=== PATIENT | male | born 1950 | race Caucasian/White ===

== ENCOUNTER 2022-09-18 02:06 | Inpatient (IN) | payer MEDICARE, BC, SELFPAY ==
[2022-09-18] VITALS (52 sets, daily range): BP systolic 74–131; BP diastolic 45–103; PULSE 59–95; RESP 18–27; TEMP 37.3–38.6; O2SAT 91–100
--- NOTE | 2022-09-18 | ECHO_ITS ---
Patient Info Name: Davie Muse Age: 72 years : 1950 Gender: Male Ht: 65 in Wt: 250 lbs BSA: 2.34 m2 HR: 62 bpm BP: 164 / 61 mmHg Heart Rhythm: Sinus Rhythm Technical Quality: Fair Exam Date: 09/18/2022 8:48 AM Exam Location: [facility] Card Pulmonary Patient Status: Inpatient Admit Date: 09/18/2022 Staff Ordering Physician: Salina Cano MD Monument Carver: Nevaeh Rodriguez RDCS Attending Provider: Salina Cano MD Referring Physician: Jerome SMITH; Exam Type: CA echo dop color flow w con Study Info Indications - sob Complete two-dimensional, color flow and Doppler transthoracic echocardiogram is performed with contrast to opacify the left ventricle and to improve the deliniation of the left ventricle endocardial borders. Contrast/Agitated Saline Contrast/Ag. Saline: Definity Amount: 3.00 ml Administered By: Nevaeh Rodriguez RDCS Existing IV Access: Yes IV Access Condition: patent with no signs of infiltration Summary 1. Left ventricular chamber dimension is normal. 2. Definity contrast administered improved wall motion interpretation. 3. Left ventricular systolic function is normal, estimated at 60-65%. 4. Left ventricular septal wall motion is abnormal with septal motion related to bundle branch block. 5. The left ventricular diastolic function is grade II diastolic dysfunction. 6. E/e' 15 is elevated. 7. Linear artifact in right ventricle suggestive of catheter(s), pacemaker lead(s), or ICD lead(s). 8. Left atrial chamber dimension is mildly enlarged. 9. Right atrial chamber dimension is mildly enlarged. 10. Linear artifact in the right atrium suggestive of catheter(s), pacemaker lead(s), or ICD lead(s). 11. The aortic valve is not well visualized. Cannot determine number of aortic valve leaflets. 12. There is severe aortic valve stenosis based on a peak velocity of 432.59 cm/s, mean gradient of 40 mmHg, and aortic valve area of 0.83 cm2. 13. No pulmonary hypertension, estimated pulmonary arterial systolic pressure is 39 mmHg. 14. Dilated inferior vena cava with >50% collapse upon inspiration consistent with elevated right atrial pressure, 10 mmHg. Left Ventricle E/e' 15 is elevated. Definity contrast administered improved wall motion interpretation. Left ventricular chamber dimension is normal. Left ventricular systolic function is normal, estimated at 60-65%. Left ventricular septal wall motion is abnormal with septal motion related to bundle branch block. The left ventricular diastolic function is grade II diastolic dysfunction. Right Ventricle Linear artifact in right ventricle suggestive of catheter(s), pacemaker lead(s), or ICD lead(s). Right ventricular chamber dimension is normal. Right ventricular systolic function is normal. Left Atria Left atrial chamber dimension is mildly enlarged. Right Atria Linear artifact in the right atrium suggestive of catheter(s), pacemaker lead(s), or ICD lead(s). Right atrial chamber dimension is mildly enlarged. Aortic Valve The aortic valve is not well visualized. Cannot determine number of aortic valve leaflets. There is severe aortic valve stenosis based on a peak velocity of 432.59 cm/s, mean gradient of 40 mmHg, and aortic valve area of 0.83 cm2. There is no aortic valve regurgitation. Pulmonic Valve There is no pulmonic regurgitation. Mitral Valve There is no mitral valve stenosis. There is no mitral valve regurgitation. Tricuspid
--- NOTE | ~2022-09-18 | XR_ITS ---
EXAMINATION: XR chest 1V portable INDICATION: Pneumonia TECHNIQUE: Portable AP chest at 0511 hours COMPARISON: 09/18/2022 FINDINGS: A right internal jugular catheter ends with its tip in the superior vena cava. Cardiomegaly is noted. There is a mild diffuse interstitial pattern. There are minimal airspace opacities of the right lung base. No pleural effusion or pneumothorax. There are changes of endoluminal aortic valve r eplacement. A dual-lead cardiac pacemaker of the left chest wall ends with leads in expected location s. IMPRESSION: 1. Cardiomegaly with mild pulmonary edema. 2. Minimal right basilar airspace opacity, consistent with atelectasis versus pneumonia. Reviewed, dictated and finalized at location A. IMPRESSION: 1. Cardiomegaly with mild pulmonary edema. 2. Minimal right basilar airspace opacity, consistent with atelectasis versus p neumonia.
--- NOTE | ~2022-09-18 | XR_ITS ---
Portable chest x-ray Comparison: 09/20/2022 Clinical History: Pneumonia Findings: Distal tip of the presumed right IJ line noted. There is probable mild central congestive change and minimal pulmonary edema. Cardiomediastinal silhouette is stable, with pacemaker device. B ones and soft tissues are unremarkable. Impression: Stable distal tip of the presumed right IJ line. Mild central congestive change and mild pulmonary edema. Stable cardiomegaly with pacemaker device. Reviewed, dictated and finalized at location . Impression: Stable distal tip of the presumed right IJ line. Mild central congestive change and mild pulmonary edema. Stable cardiomegaly with pacemaker device.
--- NOTE | ~2022-09-18 | XR_ITS ---
Portable chest x-ray Comparison: None Clinical History: Shortness of breath, line placed Findings: Right IJ line is in satisfactory position. Probable minimal central congestive change pres ent, with possible minimal bibasilar pulmonary edema. Cardiomediastinal silhouette is mildly promine nt, with pacemaker device. Bones and soft tissues are unremarkable. Impression: Right IJ line in place. No pneumothorax. Mild central congestive change and possible minimal bibasilar pulmonary edema. Reviewed, dictated and finalized at location M. Impression: Right IJ line in place. No pneumothorax. Mild central congestive change and possible minimal bibasilar pulmonary edema.
--- NOTE | ~2022-09-18 | XR_ITS ---
EXAMINATION: XR chest 1V portable INDICATION: Pneumonia TECHNIQUE: Portable AP chest at 0509 COMPARISON: 09/19/2022 FINDINGS: A right internal jugular central venous catheter ends with its tip in the proximal superior vena cava. Cardiomegaly is noted. Diffuse interstitial and airspace opacities persist with slight wo rsening. There are bibasilar airspace opacities. No pleural effusion or pneumothorax. Changes of endo luminal aortic valve replacement are noted. A dual-lead cardiac pacemaker of the left chest wall ends with leads in expected locations. IMPRESSION: 1. Cardiomegaly with worsening pulmonary edema. 2. Bibasilar airspace opacities, consistent with atelectasis versus pneumonia. Reviewed, dictated and finalized at location A.
--- NOTE | ~2022-09-18 | US_ITS ---
EXAMINATION: US abdomen limited DATE: 09/18/2022 09:56 INDICATION: Elevated liver enzymes TECHNIQUE: Multiple grayscale and Doppler ultrasound images of the abdomen were obtained. COMPARISON: None available FINDINGS: The head and body of the pancreas are normal. The pancreatic tail is obscured by bowel gas. The liver is normal with normal echogenicity and echotexture. No surface nodularity. Normal hepatope ger flow in the main portal vein. There is sludge in the nondistended gallbladder. The normal common bile duct measures 3 mm. There was no sonographic Oneal sign. IMPRESSION: 1. Gallbladder sludge. Reviewed, dictated and finalized at location B. IMPRESSION: 1. Gallbladder sludge.
--- NOTE | ~2022-09-18 | XR_ITS ---
EXAMINATION: XR chest 1V portable DATE: 09/22/2022 06:33 INDICATION: Pneumonia. TECHNIQUE: A single frontal view of the chest was obtained. COMPARISON: Chest one view 09/21/2022 FINDINGS: There is no pneumonia, pleural effusion, or pneumothorax. Cardiomegaly is noted. There is a left chest pacer with leads in right atrium and right ventricle. There are changes of aortic valve r eplacement. A right internal jugular central venous catheter is seen with tip in the right brachiocep halic vein. IMPRESSION: 1. Cardiomegaly. Reviewed, dictated and finalized at location A. IMPRESSION: 1. Cardiomegaly.
--- NOTE | ~2022-09-18 | XR_ITS ---
XR chest 1V portable 09/22/2022 14:46 Indication: Shortness of breath Procedure: AP portable chest Comparison: Comparison to multiple prior studies sequentially, with oldest reviewed study dated 09/19. Findings: Moderate cardiomegaly. Pacemaker leads are stable. Central line tip in the SVC. Retrocardia c opacification may represent atelectasis or pneumonia. Small left pleural effusion. Impression: 1: Retrocardiac opacification may represent atelectasis or pneumonia. 2: Small left pleural effusion. 3: Cardiomegaly with improving interstitial edema. Reviewed, dictated and finalized at location A. Impression: 1: Retrocardiac opacification may represent atelectasis or pneumonia. 2: Small left pleural effusion. 3: Cardiomegaly with improving interstitial edema.
--- NOTE | 2022-09-18 02:25 | ADMIMU ---
This patient, Davie Muse, was admitted to IMU status, and placed in Intensive Care Unit-2. Patient/family oriented to hospital policies and general routines including ID bracelet, bed and alarms, visiting hours, pain management, procedures, bathroom and other care routines, personal items, smoking policy, room service/diet, and visiting hours. Valuables list has been completed. Information on how to activate the Rapid Response Team has been discussed. Patient/Family are encouraged to report perceived risks to care and to ask questions if they do not understand what they are told or what they should do.
[2022-09-18] MEDS: MORPHINE SULFATE (*CRX) 2 MG/ML INJ 1 MG IV PUSH ×2 (03:25→06:53)
[2022-09-18] MEDS: NOREPINEPHRINE 8 MG/D5W 250 ML 8 MG/250 ML BAG 9.38 MG IV CONT (03:45)
--- NOTE | 2022-09-18 03:54 | ECG_ITS ---
Measurements Intervals [place] Rate: 63 P: 263 OR: 328 QRS: -73 QRSD: 181 T: -39 QT: 477 QTc: 490 Interpretive Statements ELECTRONIC ATRIAL PACEMAKER LEFT AXIS DEVIATION RIGHT BUNDLE BRANCH BLOCK ABNORMAL ECG NO PREVIOUS ECG AVAILABLE FOR COMPARISON Electronically Signed On 09-18-2022 6:39:53 CDT by Phillip Ozuna D.O.
--- NOTE | 2022-09-18 03:59 | P.PCNBED_ITS ---
Procedures Central Line Placement Right IJ: Central Line Date: 09/18/22 Central Line Time: 03:30 Consent: I have discussed with the patient and/or surrogate, the non-emergent placement of a central venous catheter, including its clinical necessity/indication and associated potential risks and complications. The patient and/or surrogate understand(s) and acknowledge(s) the need to proceed with central venous catheter insertion as an important element of the patient's clinical management. Time Out Performed: Yes Patient Position: trendelenburg Patient placed on monitor/pulse ox: Yes Provider Prep: mask, sterile gown, sterile gloves, Max. sterile barrier precautions, cap and hand hygiene with conventional soap/water or alcohol based hand rub Central line prep: 2% Chlorhexidine scrub Local anesthesia used: lidocaine 1% Amount of anesthesia used (ml): 10 Central line lumen inserted: triple Lithuanian: 15 Length (cm): 15 Depth of Insertion (cm): 15 Post Procedure: sutured in place, good blood return, all ports aspirated, flushed, capped, transparent dressing, hemostatic product, antimicrobial product and aseptic technique maintained throughout procedure Post procedure x-ray: tip of catheter in good position and no pneumothorax seen Complications: none
--- NOTE | 2022-09-18 03:59 | PM.IMHP ---
H&P: HPI History of Present Illness Date/Time: 09/18/22 03:59 Chief Complaint: Generalized weakness Narrative: This is a 72-year-old male with past medical history significant for tobacco dependence, a smokes 1 pack of cigarettes daily states the quit 4 weeks ago, aortic stenosis, COPD/emphysema, chronic kidney disease, atrial fibrillation rate control and anticoagulated, dual-chamber pacemaker in situ. Patient came via ambulance as a transfer from outside hospital presented there due to generalized weakness not feeling well for a few days , fevers, chest congestion, productive cough, chills, poor appetite. Patient became hypotensive requiring vasopressors has been transferred to our intensive care unit for further evaluation management and treatment. A CT of the chest performed at outside hospital showed left lower lobe pneumonia. Review of Systems Review of Systems: Generalized weakness, generalized malaise, poor appetite, cough productive of sputum Constitutional: Constitutional: Reports chills, Reports fatigue, Reports fever(s), Reports lethargy, Reports malaise, Reports night sweats, Reports poor appetite and Reports weakness Eyes: Eyes: Reports blurry vision ENT: Denies dysphagia and Denies odynophagia Cardiovascular: Cardiovascular: Denies irregular heart rhythm, Denies leg edema, Denies lightheadedness and Denies palpitations Respiratory: Respiratory: Reports change in phlegm color, Reports chest congestion, Reports cough, Reports excessive phlegm production, Reports dyspnea and Reports wheezing Gastrointestinal: Gastrointestinal: Denies abdominal pain, Denies dyspepsia, Denies heartburn, Denies diarrhea, Denies nausea and Denies vomiting Genitourinary: Genitourinary: Denies dysuria Musculoskeletal: Musculoskeletal: Reports myalgias and Reports muscle weakness Integumentary/Breasts: Skin/Breast: Denies rash Neurologic: Denies focal weakness and Denies Sensory deficit (Neuro) Psychiatric: Psychiatric: Reports no additional psychiatric complaints and Reports as per HPI Endocrine: Endocrine: Denies cold intolerance, Denies flushing, Denies heat intolerance, Denies polyphagia, Denies polydipsia and Denies palpitations Hematologic/Lymphatic: Hematologic/Lymphatic: Reports no additional hematologic/lymphatic complaints and Reports as per HPI Allergic/Immunologic: Allergic/Immunologic: Reports no additional allergic/immunologic complaints and Reports as per HPI PMF Social History Social History Smoking packs per day: 1 Smoking cigarettes per day: 20.0 Smoking status: Current every day smoker Tobacco type: cigarettes Alcohol intake: never Substance use: never Lack of Transportation: YES Lack of Food: Never True Current Housing: I Have Housing Concerned About Future Housing: No Difficulty Paying Gas/Electric Bills: No Difficulty Paying for Meds: No Currently Unemployed: No Education: Don't Know Difficulty w/ Childcare or Family Care: No Spiritual care concerns: No Meds Home Medications and Allergies Home Medications Medication Instructions Recorded Confirmed Type albuterol sulfate 90 mcg/actuation 2 puff inhalation Q4H PRN 09/18/22 09/18/22 History aerosol inhaler Shortness Of Breath Or Wheezing bumetanide 1 mg tablet 1 mg PO DAILY 09/18/22 09/18/22 History cyclobenzaprine 10 mg tablet 10 mg PO TID PRN Spasms 09/18/22 09/18/22 History diltiazem HCl 360 mg 360 mg PO DAILY 09/18/22 09/18/22 History capsule,extended release 24 hr dutasteride 0.5 mg capsule 0.5 mg PO DAILY 09/18/22 09/18/22 History fluticasone 500 mcg-salmeterol 50 1 inh inhalation DAILY 09/18/22 09/18/22 History mcg/dose blistr powdr for inhalation (Advair Diskus) ipratropium 20 mcg-albuterol 100 1 puff inhalation QID PRN 09/18/22 09/18/22 History mcg/actuation mist for inhalation Shortness Of Breath Or Wheezing (Combivent Respimat) metoprolol succinate 100 mg 100 mg PO DAILY 09/18/2208/27
[2022-09-18 04:32] LABS: Hemoglobin 12.5 g/dL (14.0-18.0); Mean Corpuscular HGB Conc 32.9 g/dl (32-36); Mean Corpuscular Volume 91.1 fl (80-100); Mean Platelet Volume 10.9 fl (7.4-10.4); Platelet Count Result 156 k/mm3 (150-375); Red Blood Count 4.17 M/mm3 (4.6-6.20); White Blood Count 37.1 K/mm3 (4.5-10.0)
[2022-09-18] MEDS: CENTRAL LINE FLUSH 10 ML IV PUSH ×3 (04:34→21:30)
[2022-09-18 04:43] LABS: Alanine Aminotransferase 63 U/L (6-50); Albumin Level 2.8 g/dL (3.5-5.1); Alkaline Phosphatase 311 U/L (38-126); Anion Gap 3 mmol/L (8-16); Aspartate Amino Transferase 43 U/L (17-59); Bilirubin,Total 1.9 mg/dL (0.2-1.3); Blood Urea Nitrogen 16 mg/dL (9-20); Calcium 7.8 mg/dL (8.4-10.2); Carbon Dioxide 28 mmol/L (22-30); Chloride 105 mmol/L (98-107); Estimated Glomerular Filt Rate > 60; Glucose 138 mg/dL (65-110); Magnesium 1.3 mg/dL (1.6-2.3); Phosphorus 4.3 mg/dL (2.5-4.5); Potassium 4.2 mmol/L (3.4-5.0); Sodium 136 mmol/L (137-145)
[2022-09-18 04:44] LABS: Lactic Acid Reflex 1.1 mmol/L (0.7-2.0)
[2022-09-18 05:00] LABS: NT Pro B Type Natriuretic Pept 6150 pg/mL (19.9-100); Troponin I 0.357 ng/mL (0.000-0.034)
[2022-09-18 05:33] LABS: Band Neutrophils Percent 19 % (0-6); Hypochromasia 1+ (NORMAL); Lymphocytes Absolute Manual 2.22 K/mm3 (1.1-4.5); Metamyelocytes Percent 2 %; Monocytes Absolute Manual 0.74 K/mm3 (0.1-0.90); Monocytes Percent Manual 2 % (3-9); Neutrophils Absolute Manual 32.64 K/mm3 (1.3-6.7); Neutrophils Percent Manual 69 % (46-73); Plasma Cells 1; Platelet Estimate Adequate (Adequate); Promyelocytes Percent 1 %; Schistocytes None Seen (NORMAL); Total Cells Counted 100
[2022-09-18] MEDS: MAGNESIUM SULF 2 GM/WATER 50ML 2 GM/50 ML BAG IVPB ×2 (05:58→08:59)
[2022-09-18 06:28] LABS: Glucose Point of Care 146 mg/dl (65-105)
[2022-09-18 06:32] LABS: Appearance Urine Cloudy (Clear); Bacteria Urine None Seen /hpf; Bilirubin Urine 1+ (Negative); Blood Urine 2+ (Negative); Color Urine Dark Yellow (Yellow); Glucose Urine UA Negative (Negative); Ketones Urine Negative (Negative); Leukocyte Esterase Ur Trace LEU/UL (Negative); Need Manual Microscopic Reviewed; Nitrate Urine Negative (Negative); Protein Urine 1+ mg/dL (Negative); Squamous Epithelial Cell Urine Few /hpf (Few)
[2022-09-18 06:34] LABS: Add Urine Microscopic? YES
[2022-09-18] MEDS: PIPERACILLN/TAZ 3.375GM/NS50ML 3.375 GM/50 ML BAG IVPB ×3 (07:19→17:03)
[2022-09-18] MEDS: IPRATROPIUM BR 0.02% INH SOLN 0.5 MG/2.5 ML VIAL INHALATION ×4 (07:47→20:16)
[2022-09-18] MEDS: ALBUTEROL SULFATE NEB 2.5 MG/3 ML INH INHALATION ×4 (07:47→20:16)
[2022-09-18] MEDS: FLUTICASONE/SALMETEROL 230-21 MCG INHALER 1 PUFF 2 PUFF INHALATION ×2 (07:48→20:20)
[2022-09-18] MEDS: PANTOPRAZOLE SODIUM IV 40 MG VIAL IV PUSH (08:07)
[2022-09-18] MEDS: TAMSULOSIN HCL 0.4 MG CAPSULE PO (08:07)
[2022-09-18] MEDS: DUTASTERIDE 0.5 MG CAPSULE PO (08:07)
[2022-09-18 08:21] LABS: INR 1.6; Prothrombin Time 18.2 Seconds (11.1-14.7)
[2022-09-18 08:22] LABS: Partial Thromboplastin Time 33.8 SECONDS (22.3-36.8)
--- NOTE | 2022-09-18 08:22 | WPDCNINT ---
Assessment and Plan Assessment and plan (1) Septic shock: Code(s): A41.9 - Sepsis, unspecified organism; R65.21 - Severe sepsis with septic shock Status: Acute Assessment and Plan: Patient presented the outside hospital with fevers/chills, productive cough, lethargy -rapid strep throat test was positive -chest CT scan did not show any pulmonary embolism, revealed atelectasis and infiltrates -patient started on Zosyn and vancomycin (09/17), will continue -will add azithromycin for atypical pneumonia -lactic acid is 1.1 -patient currently on Levophed and Miguel-Synephrine, maintained MAP > 65 mmHg at all times for adequate end organ perfusion -blood cultures have been obtained and pending (2) Community acquired pneumonia: Code(s): J18.9 - Pneumonia, unspecified organism Status: Acute Assessment and Plan: Community acquired pneumonia likely strep -continue antibiotics as above -influenza A and B were negative at the outside hospital -rapid antigen for COVID was negative at the outside hospital -will check SARs CoV 2 PCR -rapid strep throat test was positive (3) COPD with emphysema: Code(s): J43.9 - Emphysema, unspecified Status: Acute Assessment and Plan: Patient with history of COPD, tobacco abuse -continue bronchodilators, antibiotics and supplemental oxygen (4) Atrial fibrillation: Code(s): I48.91 - Unspecified atrial fibrillation Status: Acute Assessment and Plan: Patient with history of AFib, currently rate controlled -has a pacemaker -continue rivaroxaban -will hold beta-helen and diltiazem since patient is in septic shock requiring vasopressors (5) Chronic kidney disease: Code(s): N18.9 - Chronic kidney disease, unspecified Status: Acute Assessment and Plan: History of chronic kidney disease -creatinine currently 1.0 -will monitor urine output, renal function and electrolytes (6) Elevated LFTs: Code(s): R79.89 - Other specified abnormal findings of blood chemistry Status: Acute Assessment and Plan: Elevated LFTs could be related to hypotension, septic shock -will obtain right upper quadrant ultrasound and hepatitis panel (7) Chest pain: Code(s): R07.9 - Chest pain, unspecified Status: Acute Assessment and Plan: Patient had chest pain after being given IV fluids -troponin was mildly elevated which could be related to type 2 infarct secondary septic shock -will monitor troponin levels -EKG showed right bundle-branch block, paced rhythm and left axis deviation Plan DVT prophylaxis: Rivaroxaban Stress ulcer prophylaxis: Not indicated as patient is on a diet Nutrition: Heart healthy diet Code Status: Full code Critical Care Time Spent: 49 minutes Due to a high probability of clinically significant, life threatening deterioration, the patient required my highest level of preparedness to intervene emergently and I personally spent this critical care time directly and personally managing the patient. This critical care time included obtaining a history; examining the patient; pulse oximetry; ordering and review of studies; arranging urgent treatment with development of a management plan; evaluation of patient's response to treatment; frequent reassessment; and discussions with other providers. It was exclusive of separately billable procedures and treating other patients and teaching time. Please see Assessment and Plan section and the rest of the note for further information on patient assessment and treatment This dictation may have been done utilizing a voice recognition system. Attempts have been made to correct errors. However, there may be uncorrected grammatical, spelling, and recognitions errors present. 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
[2022-09-18 08:42] LABS: Troponin I 0.344 ng/mL (0.000-0.034)
[2022-09-18] MEDS: PERFLUTREN LIPID MICROSPHERES 1.5 ML VIAL DILUTED TO 10 ML TOTAL VOLUME IV PUSH (09:28)
--- NOTE | 2022-09-18 09:28 | IVDEFINITY ---
Prior to administration of IV Definity the patient was educated on the risks and benefits of the imaging enhancing agent including potential adverse side effects. The patient verbalized understanding. Allergies were verified. No exclusion criteria were identified and at least one of the following inclusion criteria were met: 1) physician request, 2) patient technically difficult to image (per the [place] [employer] guidelines of two or more segments not discernable within the apical view), or 3) questionable left ventricular function. ?
[2022-09-18 09:35] LABS: Hepatitis B Surface Antigen Negative (Negative)
[2022-09-18 09:41] LABS: HAV RESULT Negative (Negative); Hepatitis B Core IgM Result Negative (Negative)
[2022-09-18 09:53] LABS: Hepatitis C Virus Antibody Negative (Negative)
[2022-09-18 10:11] LABS: SARS-CoV-2 RNA PCR Negative
[2022-09-18 12:46] LABS: Troponin I 0.284 ng/mL (0.000-0.034)
[2022-09-18] MEDS: RIVAROXABAN 20 MG TABLET PO (17:03)
[2022-09-18] MEDS: ROSUVASTATIN 10 MG TABLET 20 MG PO (21:30)
[2022-09-18] MEDS: oxyCODONE/ACETAMINOPHEN (*CRX) 5-325 MG TABLET 1 TABLET PO (21:30)
[2022-09-18] MEDS: MORPHINE SULFATE (*CRX) 2 MG/ML INJ IV PUSH (22:36)
[2022-09-19] VITALS (41 sets, daily range): BP systolic 58–174; BP diastolic 36–103; PULSE 75–108; RESP 14–27; TEMP 36.3–38.1; O2SAT 93–99
[2022-09-19] MEDS: PIPERACILLN/TAZ 3.375GM/NS50ML 3.375 GM/50 ML BAG IVPB ×4 (00:48→17:09)
[2022-09-19] MEDS: IPRATROPIUM BR 0.02% INH SOLN 0.5 MG/2.5 ML VIAL INHALATION ×6 (01:31→19:34)
[2022-09-19] MEDS: ALBUTEROL SULFATE NEB 2.5 MG/3 ML INH INHALATION ×6 (01:31→19:34)
[2022-09-19] MEDS: MORPHINE SULFATE (*CRX) 2 MG/ML INJ IV PUSH (02:43)
[2022-09-19 04:00] LABS: Basophils Absolute Auto 0.1 K/mm3 (0.0-0.1); Basophils Percent Auto 0.3 % (0.2-1.2); Eosinophils Absolute Auto 0.1 K/mm3 (0-0.3); Eosinophils Percent Auto 0.2 % (0-4.4); Hemoglobin 12.3 g/dL (14.0-18.0); Immature Granulocyte Absolute 0.85 K/mm3 (0.00-0.031); Immature Granulocyte Percent A 2.9 % (0-0.5); Lymphocytes Absolute Auto 2.81 K/mm3 (0.9-3.2); Lymphocytes Percent Auto 9.7 % (18.3-44.2); Mean Corpuscular HGB Conc 32.4 g/dl (32-36); Mean Corpuscular Hemoglobin 29.9 pg (26-34); Mean Corpuscular Volume 92.2 fl (80-100); Mean Platelet Volume 11.3 fl (7.4-10.4); Monocytes Absolute Auto 2.2 K/mm3 (0.1-0.6); Monocytes Percent Auto 7.4 % (2.6-8.5); Neutrophils Absolute Auto 23.1 K/mm3 (1.3-6.7); Neutrophils Percent Auto 79.5 % (45.5-73.1); Platelet Count Result 145 k/mm3 (150-375); Red Blood Count 4.12 M/mm3 (4.6-6.20); Red Cell Distribution Width 15.1 % (11.5-14.5)
[2022-09-19 04:14] LABS: Alanine Aminotransferase 45 U/L (6-50); Albumin Level 2.8 g/dL (3.5-5.1); Alkaline Phosphatase 278 U/L (38-126); Anion Gap 2 mmol/L (8-16); Aspartate Amino Transferase 31 U/L (17-59); Bilirubin,Total 1.2 mg/dL (0.2-1.3); Blood Urea Nitrogen 16 mg/dL (9-20); Calcium 7.8 mg/dL (8.4-10.2); Carbon Dioxide 28 mmol/L (22-30); Chloride 100 mmol/L (98-107); Estimated CRCL calculation 70 ml/min; Estimated Glomerular Filt Rate > 60; Glucose 186 mg/dL (65-110); Lipase 27 U/L (23-300); Phosphorus 3.8 mg/dL (2.5-4.5); Sodium 130 mmol/L (137-145)
[2022-09-19 04:16] LABS: Lactic Acid Reflex 1.6 mmol/L (0.7-2.0)
[2022-09-19 04:43] LABS: Platelet Estimate Adequate (Adequate)
[2022-09-19 04:44] LABS: Anisocytosis 1+ (NORMAL); Macrocytosis 1+ (NORMAL); Schistocytes None Seen (NORMAL)
[2022-09-19 04:45] LABS: Atypical Lymphocytes Present
[2022-09-19] MEDS: NOREPINEPHRINE 8 MG/D5W 250 ML 8 MG/250 ML BAG 5.63 MG IV CONT (04:55)
[2022-09-19] MEDS: CENTRAL LINE FLUSH 10 ML IV PUSH ×3 (06:24→20:07)
[2022-09-19] MEDS: oxyCODONE/ACETAMINOPHEN (*CRX) 5-325 MG TABLET 1 TABLET PO ×2 (06:26→21:47)
[2022-09-19] MEDS: FLUTICASONE/SALMETEROL 230-21 MCG INHALER 1 PUFF 2 PUFF INHALATION ×2 (08:12→19:37)
[2022-09-19] MEDS: ALBUMIN HUMAN 25% 25 GM/100 ML 100 ML IVPB ×3 (09:05→20:06)
[2022-09-19] MEDS: PANTOPRAZOLE SODIUM IV 40 MG VIAL IV PUSH (09:06)
[2022-09-19] MEDS: DUTASTERIDE 0.5 MG CAPSULE PO (09:06)
[2022-09-19] MEDS: TAMSULOSIN HCL 0.4 MG CAPSULE PO (10:55)
--- NOTE | 2022-09-19 12:38 | WPDINTPN ---
Progress Note: A&P Assessment and Plan (1) Septic shock: Code(s): A41.9 - Sepsis, unspecified organism; R65.21 - Severe sepsis with septic shock Status: Acute Assessment and Plan: Patient presented the outside hospital with fevers/chills, productive cough, lethargy -rapid strep throat test was positive -chest CT scan did not show any pulmonary embolism, revealed atelectasis and infiltrates -patient started on Zosyn and vancomycin (09/17), will continue -azithromycin added on 09/18 -lactic acid is normal -patient currently on Levophed and Miguel-Synephrine, maintained MAP > 65 mmHg at all times for adequate end organ perfusion -09/18/2022: Blood cultures growing Gram-positive cocci in pairs 2/2 bottles (2) Community acquired pneumonia: Code(s): J18.9 - Pneumonia, unspecified organism Status: Acute Assessment and Plan: Community acquired pneumonia likely strep -continue antibiotics as above -influenza A and B were negative at the outside hospital -rapid antigen for COVID was negative at the outside hospital -SARS-CoV-2 PCR negative here -rapid strep throat test was positive -will start steroids (3) COPD with emphysema: Code(s): J43.9 - Emphysema, unspecified Status: Acute Assessment and Plan: Patient with history of COPD, tobacco abuse -continue bronchodilators, antibiotics and supplemental oxygen (4) Atrial fibrillation: Code(s): I48.91 - Unspecified atrial fibrillation Status: Acute Assessment and Plan: Patient with history of AFib, currently rate controlled -has a pacemaker -continue rivaroxaban -will hold beta-helen and diltiazem since patient is in septic shock requiring vasopressors (5) Chronic kidney disease: Code(s): N18.9 - Chronic kidney disease, unspecified Status: Acute Assessment and Plan: History of chronic kidney disease -creatinine currently 1.0 -will monitor urine output, renal function and electrolytes (6) Elevated LFTs: Code(s): R79.89 - Other specified abnormal findings of blood chemistry Status: Acute Assessment and Plan: Elevated LFTs could be related to hypotension, septic shock -LFTs have normalized -hepatitis panel was negative -right upper quadrant ultrasound showed gallbladder sludge (7) Chest pain: Code(s): R07.9 - Chest pain, unspecified Status: Acute Assessment and Plan: Patient had chest pain after being given IV fluids -troponin was mildly elevated and plateaued which could be related to type 2 infarct secondary septic shock -EKG showed right bundle-branch block, paced rhythm and left axis deviation Plan DVT prophylaxis: Rivaroxaban Stress ulcer prophylaxis: Not indicated as patient is on a diet Nutrition: Heart healthy diet Code Status: Full code Critical Care Time Spent: 33 minutes Due to a high probability of clinically significant, life threatening deterioration, the patient required my highest level of preparedness to intervene emergently and I personally spent this critical care time directly and personally managing the patient. This critical care time included obtaining a history; examining the patient; pulse oximetry; ordering and review of studies; arranging urgent treatment with development of a management plan; evaluation of patient's response to treatment; frequent reassessment; and discussions with other providers. It was exclusive of separately billable procedures and treating other patients and teaching time. Please see Assessment and Plan section and the rest of the note for further information on patient assessment and treatment This dictation may have been done utilizing a voice recognition system. Attempts have been made to correct errors. However, there may be uncorrected grammatical, spelling, and recognitions errors present. Subjective Date/time seen: 09/19/22 12:38 Interval history: Reason for consult: Septic shock, pneumonia, f
[2022-09-19] MEDS: HYDROCORTISONE SODIUM SUCCINATE 100 MG/2 ML VIAL 50 MG IV PUSH ×2 (13:11→18:09)
[2022-09-19] MEDS: RIVAROXABAN 20 MG TABLET PO (16:42)
[2022-09-19 17:33] LABS: Vancomycin Trough 13.4 ug/mL (10.0-20.0)
[2022-09-19] MEDS: SODIUM CHLORIDE 0.9% IV 1,000 ML 75 ML IV CONT (19:54)
[2022-09-19] MEDS: ROSUVASTATIN 10 MG TABLET 20 MG PO (20:07)
[2022-09-20] VITALS (27 sets, daily range): BP systolic 91–131; BP diastolic 51–72; PULSE 67–94; RESP 15–96; TEMP 36.3–36.9; O2SAT 21–99
[2022-09-20] MEDS: ALBUTEROL SULFATE NEB 2.5 MG/3 ML INH INHALATION ×6 (00:32→20:15)
[2022-09-20] MEDS: IPRATROPIUM BR 0.02% INH SOLN 0.5 MG/2.5 ML VIAL INHALATION ×5 (00:32→15:18)
[2022-09-20] MEDS: PIPERACILLN/TAZ 3.375GM/NS50ML 3.375 GM/50 ML BAG IVPB ×4 (00:45→17:05)
[2022-09-20] MEDS: HYDROCORTISONE SODIUM SUCCINATE 100 MG/2 ML VIAL 50 MG IV PUSH ×4 (02:19→18:19)
[2022-09-20] MEDS: ALBUMIN HUMAN 25% 25 GM/100 ML 100 ML IVPB (03:03)
[2022-09-20 04:09] LABS: Basophils Percent Auto 0.2 % (0.2-1.2); Hematocrit 33.7 % (42.0-52.0); Hemoglobin 10.9 g/dL (14.0-18.0); Immature Granulocyte Absolute 0.63 K/mm3 (0.00-0.031); Immature Granulocyte Percent A 2.7 % (0-0.5); Immature Platelet Fraction Pct 10.6 % (0.9-11.2); Lymphocytes Absolute Auto 1.12 K/mm3 (0.9-3.2); Lymphocytes Percent Auto 4.9 % (18.3-44.2); Mean Corpuscular HGB Conc 32.3 g/dl (32-36); Mean Corpuscular Hemoglobin 29.8 pg (26-34); Mean Corpuscular Volume 92.1 fl (80-100); Mean Platelet Volume 10.9 fl (7.4-10.4); Monocytes Absolute Auto 1.1 K/mm3 (0.1-0.6); Monocytes Percent Auto 4.9 % (2.6-8.5); Neutrophils Percent Auto 87.3 % (45.5-73.1); Platelet Count Result 139 k/mm3 (150-375); Red Blood Count 3.66 M/mm3 (4.6-6.20); White Blood Count 22.9 K/mm3 (4.5-10.0)
[2022-09-20 04:33] LABS: Alanine Aminotransferase 38 U/L (6-50); Albumin Level 3.3 g/dL (3.5-5.1); Alkaline Phosphatase 262 U/L (38-126); Anion Gap 3 mmol/L (8-16); Aspartate Amino Transferase 34 U/L (17-59); Bilirubin,Total 1.1 mg/dL (0.2-1.3); Blood Urea Nitrogen 15 mg/dL (9-20); Calcium 8.3 mg/dL (8.4-10.2); Carbon Dioxide 29 mmol/L (22-30); Chloride 101 mmol/L (98-107); Estimated CRCL calculation 70 ml/min; Estimated Glomerular Filt Rate > 60; Glucose 215 mg/dL (65-110); Magnesium 2.1 mg/dL (1.6-2.3); Phosphorus 3.8 mg/dL (2.5-4.5); Potassium 4.5 mmol/L (3.4-5.0); Sodium 133 mmol/L (137-145)
[2022-09-20] MEDS: CENTRAL LINE FLUSH 10 ML IV PUSH ×3 (05:55→20:04)
[2022-09-20] MEDS: FLUTICASONE/SALMETEROL 230-21 MCG INHALER 1 PUFF 2 PUFF INHALATION ×2 (07:52→20:12)
--- NOTE | 2022-09-20 08:45 | WPDINTPN ---
Progress Note: A&P Assessment and Plan (1) Septic shock: Code(s): A41.9 - Sepsis, unspecified organism; R65.21 - Severe sepsis with septic shock Status: Acute Assessment and Plan: Patient presented the outside hospital with fevers/chills, productive cough, lethargy -rapid strep throat test was positive -chest CT scan did not show any pulmonary embolism, revealed atelectasis and infiltrates -patient started on Zosyn and vancomycin (09/17), will continue -azithromycin added on 09/18 -lactic acid is normal -patient being weaned off Levophed, maintained MAP > 65 mmHg at all times for adequate end organ perfusion -has been off Miguel-Synephrine -09/18/2022: Blood cultures growing Gram-positive cocci in pairs / bottles -09/18/2022: MRSA screen is positive (2) Community acquired pneumonia: Code(s): J18.9 - Pneumonia, unspecified organism Status: Acute Assessment and Plan: Community acquired pneumonia likely strep with strep bacteremia -continue antibiotics as above -influenza A and B were negative at the outside hospital -rapid antigen for COVID was negative at the outside hospital -SARS-CoV-2 PCR negative here at [facility] -rapid strep throat test was positive -continue steroids (3) COPD with emphysema: Code(s): J43.9 - Emphysema, unspecified Status: Acute Assessment and Plan: Patient with history of COPD, tobacco abuse -continue bronchodilators, antibiotics and supplemental oxygen -BiPAP at night and tolerating (4) Atrial fibrillation: Code(s): I48.91 - Unspecified atrial fibrillation Status: Acute Assessment and Plan: Patient with history of AFib, currently rate controlled -has a pacemaker -continue rivaroxaban -will hold beta-helen and diltiazem since patient is in septic shock requiring vasopressors (5) Chronic kidney disease: Code(s): N18.9 - Chronic kidney disease, unspecified Status: Acute Assessment and Plan: History of chronic kidney disease -creatinine currently 1.0 -will monitor urine output, renal function and electrolytes (6) Elevated LFTs: Code(s): R79.89 - Other specified abnormal findings of blood chemistry Status: Acute Assessment and Plan: Elevated LFTs could be related to hypotension, septic shock -LFTs have normalized -hepatitis panel was negative -right upper quadrant ultrasound showed gallbladder sludge - (7) Chest pain: Code(s): R07.9 - Chest pain, unspecified Status: Acute Assessment and Plan: Patient had chest pain after being given IV fluids -troponin was mildly elevated and plateaued which could be related to type 2 infarct secondary septic shock -EKG showed right bundle-branch block, paced rhythm and left axis deviation Plan DVT prophylaxis: Rivaroxaban Stress ulcer prophylaxis: Not indicated as patient is on a diet Nutrition: Heart healthy diet Code Status: Full code Critical Care Time Spent: 32 minutes Due to a high probability of clinically significant, life threatening deterioration, the patient required my highest level of preparedness to intervene emergently and I personally spent this critical care time directly and personally managing the patient. This critical care time included obtaining a history; examining the patient; pulse oximetry; ordering and review of studies; arranging urgent treatment with development of a management plan; evaluation of patient's response to treatment; frequent reassessment; and discussions with other providers. It was exclusive of separately billable procedures and treating other patients and teaching time. Please see Assessment and Plan section and the rest of the note for further information on patient assessment and treatment This dictation may have been done utilizing a voice recognition system. Attempts have been made to correct errors. However, there may be uncorrected grammatical, spelling, and recognitions erro
[2022-09-20] MEDS: PANTOPRAZOLE SODIUM IV 40 MG VIAL IV PUSH (08:50)
[2022-09-20] MEDS: TAMSULOSIN HCL 0.4 MG CAPSULE PO (08:51)
[2022-09-20] MEDS: DUTASTERIDE 0.5 MG CAPSULE PO (08:51)
[2022-09-20] MEDS: INSULIN ASPART (*BKC) 100 UNITS/ML SUB-Q ×3 (11:49→20:13)
[2022-09-20 12:22] LABS: Glucose Point of Care 347 mg/dl (65-105)
[2022-09-20] MEDS: RIVAROXABAN 20 MG TABLET PO (17:05)
[2022-09-20 17:56] LABS: Glucose Point of Care 203 mg/dl (65-105)
[2022-09-20] MEDS: guaiFENesin/DEXTROMETHORPHAN 10 ML UDC 5 ML PO (18:20)
[2022-09-20] MEDS: BUMETANIDE INJ 1 MG/4 ML VIAL 0.5 MG IV PUSH (20:01)
[2022-09-20] MEDS: ROSUVASTATIN 10 MG TABLET 20 MG PO (20:02)
[2022-09-20] MEDS: TOLNAFTATE 1% POWDER 45 GM BTL 1 APPLIC TOPICAL (20:03)
[2022-09-20 20:24] LABS: Glucose Point of Care 212 mg/dl (65-105)
[2022-09-21] VITALS (35 sets, daily range): BP systolic 101–137; BP diastolic 53–84; PULSE 72–126; RESP 18–25; TEMP 35.9–36.6; O2SAT 92–98
[2022-09-21] MEDS: HYDROCORTISONE SODIUM SUCCINATE 100 MG/2 ML VIAL 50 MG IV PUSH ×3 (00:10→08:43)
[2022-09-21] MEDS: guaiFENesin/DEXTROMETHORPHAN 10 ML UDC 5 ML PO (00:10)
[2022-09-21] MEDS: PIPERACILLN/TAZ 3.375GM/NS50ML 3.375 GM/50 ML BAG IVPB ×2 (00:10→06:09)
[2022-09-21] MEDS: ALBUTEROL SULFATE NEB 2.5 MG/3 ML INH INHALATION ×7 (01:15→23:40)
[2022-09-21] MEDS: IPRATROPIUM BR 0.02% INH SOLN 0.5 MG/2.5 ML VIAL INHALATION ×6 (05:03→23:41)
[2022-09-21 05:34] LABS: Glucose Point of Care 197 mg/dl (65-105)
[2022-09-21] MEDS: CENTRAL LINE FLUSH 10 ML IV PUSH ×3 (06:09→20:44)
[2022-09-21 06:25] LABS: Basophils Absolute Auto 0.1 K/mm3 (0.0-0.1); Basophils Percent Auto 0.2 % (0.2-1.2); Hematocrit 33.4 % (42.0-52.0); Hemoglobin 10.7 g/dL (14.0-18.0); Immature Granulocyte Absolute 0.51 K/mm3 (0.00-0.031); Immature Granulocyte Percent A 2.1 % (0-0.5); Lymphocytes Absolute Auto 1.16 K/mm3 (0.9-3.2); Lymphocytes Percent Auto 4.8 % (18.3-44.2); Mean Corpuscular Hemoglobin 29.9 pg (26-34); Mean Corpuscular Volume 93.3 fl (80-100); Mean Platelet Volume 11.3 fl (7.4-10.4); Monocytes Absolute Auto 1.1 K/mm3 (0.1-0.6); Monocytes Percent Auto 4.7 % (2.6-8.5); Neutrophils Absolute Auto 21.3 K/mm3 (1.3-6.7); Neutrophils Percent Auto 88.2 % (45.5-73.1); Platelet Count Result 171 k/mm3 (150-375); Red Blood Count 3.58 M/mm3 (4.6-6.20); Red Cell Distribution Width 14.9 % (11.5-14.5); White Blood Count 24.1 K/mm3 (4.5-10.0)
[2022-09-21 06:36] LABS: Anion Gap 2 mmol/L (8-16); Blood Urea Nitrogen 18 mg/dL (9-20); Carbon Dioxide 32 mmol/L (22-30); Chloride 102 mmol/L (98-107); Estimated CRCL calculation 58 ml/min; Estimated Glomerular Filt Rate 59; Potassium 4.1 mmol/L (3.4-5.0); Sodium 136 mmol/L (137-145)
[2022-09-21 06:37] LABS: Alanine Aminotransferase 44 U/L (6-50); Albumin Level 3.1 g/dL (3.5-5.1); Alkaline Phosphatase 268 U/L (38-126); Aspartate Amino Transferase 43 U/L (17-59); Bilirubin,Total 0.9 mg/dL (0.2-1.3); Calcium 8.3 mg/dL (8.4-10.2); Glucose 195 mg/dL (65-110); Magnesium 2.1 mg/dL (1.6-2.3)
[2022-09-21 07:04] LABS: Vancomycin Trough 21.8 ug/mL (10.0-20.0)
[2022-09-21] MEDS: FLUTICASONE/SALMETEROL 230-21 MCG INHALER 1 PUFF 2 PUFF INHALATION (07:25)
[2022-09-21 08:09] LABS: Free T4 Free Thyroxine Reflex 0.97 ng/dL (0.78-2.19)
[2022-09-21 08:16] LABS: Glucose Point of Care 191 mg/dl (65-105)
[2022-09-21] MEDS: PANTOPRAZOLE SODIUM IV 40 MG VIAL IV PUSH (08:43)
[2022-09-21] MEDS: TAMSULOSIN HCL 0.4 MG CAPSULE PO (08:43)
[2022-09-21] MEDS: TOLNAFTATE 1% POWDER 45 GM BTL 1 APPLIC TOPICAL ×2 (08:43→20:43)
[2022-09-21] MEDS: DUTASTERIDE 0.5 MG CAPSULE PO (08:43)
[2022-09-21 08:50] LABS: Total Triiodothyronine (T3) 0.58 NG/ML (0.97-1.69)
[2022-09-21] MEDS: BENZONATATE 100 MG CAPSULE 200 MG PO ×3 (09:45→17:05)
--- NOTE | 2022-09-21 10:56 | PCFNICU ---
ICU Rounding Note: Pt current nutrition is Heart Healthy, Ensure compact BID Nutrition recommendation: Continue with current plan of care Last recorded weight is 117.1 kg - stable Bowel Motility: no BM recorded at this time Labs Reviewed: Hgb:10.7, HCT:33.4, Alb:3.1, Na:136, Glu:191 Meds Noted: novolog, protonix Skin: WNL Additional Notes: Pt continues on a heart healthy diet, intake and appetite is good at 50-100% of meals. Agree with diet orders. Following daily in ICU rounds.
[2022-09-21 11:39] LABS: Glucose Point of Care 341 mg/dl (65-105)
[2022-09-21] MEDS: INSULIN ASPART (*BKC) 100 UNITS/ML SUB-Q ×2 (11:42→20:49)
[2022-09-21] MEDS: AMPICILLIN SULB 3 GM/NS 100 ML 3 GM/100 ML VIAL IVPB ×4 (12:03→23:27)
--- NOTE | 2022-09-21 13:19 | WPDINTPN ---
Progress Note: A&P Assessment and Plan (1) Septic shock: Code(s): A41.9 - Sepsis, unspecified organism; R65.21 - Severe sepsis with septic shock Status: Acute Assessment and Plan: Patient presented the outside hospital with fevers/chills, productive cough, lethargy -rapid strep throat test was positive -chest CT scan did not show any pulmonary embolism, revealed atelectasis and infiltrates -lactic acid is normal -off Levophed since 09/20/2022 -has been off Miguel-Synephrine since 09/18/2022 -09/18/2022: Blood cultures growing Enterococcus faecalis 07/30 -09/18/2022: MRSA screen is positive -patient's history Unasyn on 09/21 Zosyn and vancomycin which were discontinued on 09/21 -azithromycin added on 09/18 for 5 days (2) Community acquired pneumonia: Code(s): J18.9 - Pneumonia, unspecified organism Status: Acute Assessment and Plan: Community acquired pneumonia likely strep with strep bacteremia -continue antibiotics as above -influenza A and B were negative at the outside hospital -rapid antigen for COVID was negative at the outside hospital -SARS-CoV-2 PCR negative here at [facility] -rapid strep throat test was positive (3) COPD with emphysema: Code(s): J43.9 - Emphysema, unspecified Status: Acute Assessment and Plan: Patient with history of COPD, tobacco abuse -continue bronchodilators, antibiotics and supplemental oxygen -BiPAP at night and tolerating (4) Atrial fibrillation: Code(s): I48.91 - Unspecified atrial fibrillation Status: Acute Assessment and Plan: Patient with history of AFib, currently rate controlled -has a pacemaker -continue rivaroxaban -will hold beta-helen and diltiazem since patient is in septic shock requiring vasopressors (5) Chronic kidney disease: Code(s): N18.9 - Chronic kidney disease, unspecified Status: Acute Assessment and Plan: History of chronic kidney disease -creatinine currently 1.0 -will monitor urine output, renal function and electrolytes (6) Elevated LFTs: Code(s): R79.89 - Other specified abnormal findings of blood chemistry Status: Acute Assessment and Plan: Elevated LFTs could be related to hypotension, septic shock -LFTs have normalized -hepatitis panel was negative -right upper quadrant ultrasound showed gallbladder sludge - (7) Chest pain: Code(s): R07.9 - Chest pain, unspecified Status: Acute Assessment and Plan: Patient had chest pain after being given IV fluids -troponin was mildly elevated and plateaued which could be related to type 2 infarct secondary septic shock -EKG showed right bundle-branch block, paced rhythm and left axis deviation Plan DVT prophylaxis: Rivaroxaban Stress ulcer prophylaxis: Not indicated as patient is on a diet Nutrition: Heart healthy diet Code Status: Full code Critical Care Time Spent: 31minutes Due to a high probability of clinically significant, life threatening deterioration, the patient required my highest level of preparedness to intervene emergently and I personally spent this critical care time directly and personally managing the patient. This critical care time included obtaining a history; examining the patient; pulse oximetry; ordering and review of studies; arranging urgent treatment with development of a management plan; evaluation of patient's response to treatment; frequent reassessment; and discussions with other providers. It was exclusive of separately billable procedures and treating other patients and teaching time. Please see Assessment and Plan section and the rest of the note for further information on patient assessment and treatment This dictation may have been done utilizing a voice recognition system. Attempts have been made to correct errors. However, there may be uncorrected grammatical, spelling, and recognitions errors present. Subjective Date/time seen: 09/21/22
[2022-09-21 16:58] LABS: Glucose Point of Care 157 mg/dl (65-105)
[2022-09-21] MEDS: RIVAROXABAN 20 MG TABLET PO (17:05)
--- NOTE | 2022-09-21 20:20 | ECG_ITS ---
Measurements Intervals [place] Rate: 94 P: 42 MN: 226 QRS: -65 QRSD: 172 T: 61 QT: 387 QTc: 486 Interpretive Statements SINUS RHYTHM WITH FIRST DEGREE AV BLOCK ATRIAL PREMATURE COMPLEX RIGHT BUNDLE BRANCH BLOCK LEFT ANTERIOR FASCICULAR BLOCK ABNORMAL ECG COMPARED TO ECG 09/18/2022 04:00:32 SINUS RHYTHM NOW PRESENT Electronically Signed On 09-22-2022 7:54:45 CDT by Phillip Ozuna D.O.
[2022-09-21] MEDS: ROSUVASTATIN 10 MG TABLET 20 MG PO (20:43)
[2022-09-21 21:01] LABS: Glucose Point of Care 223 mg/dl (65-105)
[2022-09-22] VITALS (27 sets, daily range): BP systolic 92–163; BP diastolic 55–124; PULSE 86–145; RESP 18–34; TEMP 36.2–36.6; O2SAT 93–97
[2022-09-22] MEDS: AMPICILLIN SULB 3 GM/NS 100 ML 3 GM/100 ML VIAL IVPB ×4 (03:17→17:13)
[2022-09-22 04:50] LABS: Basophils Absolute Auto 0.1 K/mm3 (0.0-0.1); Basophils Percent Auto 0.2 % (0.2-1.2); Hematocrit 34.1 % (42.0-52.0); Hemoglobin 10.8 g/dL (14.0-18.0); Immature Granulocyte Absolute 0.32 K/mm3 (0.00-0.031); Immature Granulocyte Percent A 1.6 % (0-0.5); Lymphocytes Absolute Auto 2.28 K/mm3 (0.9-3.2); Lymphocytes Percent Auto 11.2 % (18.3-44.2); Mean Corpuscular HGB Conc 31.7 g/dl (32-36); Mean Corpuscular Hemoglobin 29.3 pg (26-34); Mean Corpuscular Volume 92.4 fl (80-100); Mean Platelet Volume 10.3 fl (7.4-10.4); Monocytes Absolute Auto 1.4 K/mm3 (0.1-0.6); Neutrophils Absolute Auto 16.3 K/mm3 (1.3-6.7); Platelet Count Result 192 k/mm3 (150-375); Red Blood Count 3.69 M/mm3 (4.6-6.20); Red Cell Distribution Width 14.6 % (11.5-14.5); White Blood Count 20.4 K/mm3 (4.5-10.0)
[2022-09-22 05:01] LABS: Alanine Aminotransferase 48 U/L (6-50); Albumin Level 3.1 g/dL (3.5-5.1); Alkaline Phosphatase 235 U/L (38-126); Anion Gap 1 mmol/L (8-16); Aspartate Amino Transferase 51 U/L (17-59); Bilirubin,Total 0.8 mg/dL (0.2-1.3); Blood Urea Nitrogen 20 mg/dL (9-20); Calcium 8.6 mg/dL (8.4-10.2); Carbon Dioxide 38 mmol/L (22-30); Chloride 100 mmol/L (98-107); Estimated CRCL calculation 58 ml/min; Estimated Glomerular Filt Rate 59; Glucose 134 mg/dL (65-110); Magnesium 1.9 mg/dL (1.6-2.3); Phosphorus 2.6 mg/dL (2.5-4.5); Potassium 3.6 mmol/L (3.4-5.0); Sodium 139 mmol/L (137-145)
[2022-09-22] MEDS: ALBUTEROL SULFATE NEB 2.5 MG/3 ML INH INHALATION ×3 (05:38→11:34)
[2022-09-22] MEDS: IPRATROPIUM BR 0.02% INH SOLN 0.5 MG/2.5 ML VIAL INHALATION ×4 (05:39→15:45)
[2022-09-22] MEDS: CENTRAL LINE FLUSH 10 ML IV PUSH (06:50)
[2022-09-22] MEDS: FLUTICASONE/SALMETEROL 230-21 MCG INHALER 1 PUFF 2 PUFF INHALATION (08:02)
[2022-09-22 08:38] LABS: Glucose Point of Care 112 mg/dl (65-105)
[2022-09-22] MEDS: TAMSULOSIN HCL 0.4 MG CAPSULE PO (09:23)
[2022-09-22] MEDS: BENZONATATE 100 MG CAPSULE 200 MG PO (09:23)
[2022-09-22] MEDS: TOLNAFTATE 1% POWDER 45 GM BTL 1 APPLIC TOPICAL (09:23)
[2022-09-22] MEDS: DUTASTERIDE 0.5 MG CAPSULE PO (09:23)
[2022-09-22] MEDS: PANTOPRAZOLE SODIUM IV 40 MG VIAL IV PUSH (09:23)
[2022-09-22] MEDS: CYCLOBENZAPRINE HCL 10 MG TABLET PO (09:24)
[2022-09-22] MEDS: oxyCODONE/ACETAMINOPHEN (*CRX) 5-325 MG TABLET 1 TABLET PO (10:48)
[2022-09-22] MEDS: BUMETANIDE INJ 1 MG/4 ML VIAL IV PUSH (12:43)
[2022-09-22] MEDS: MORPHINE SULFATE (*CRX) 2 MG/ML INJ IV PUSH ×3 (12:47→17:20)
[2022-09-22 13:27] LABS: Glucose Point of Care 182 mg/dl (65-105)
--- NOTE | 2022-09-22 13:40 | PCOTNOTE ---
Attempted OT treatment, patient declined at this time due to neck pain, RN aware. Will follow.
--- NOTE | 2022-09-22 14:32 | ECG_ITS ---
Measurements Intervals [place] Rate: 121 P: ME: 0 QRS: -67 QRSD: 147 T: 63 QT: 348 QTc: 494 Interpretive Statements ATRIAL FIBRILLATION WITH RAPID VENTRICULAR RESPONSE VENTRICULAR PREMATURE COMPLEX RIGHT BUNDLE BRANCH BLOCK LEFT ANTERIOR FASCICULAR BLOCK BASELINE ARTIFACT- I, II, AVR, AVL, AVF, V1-V3 ABNORMAL ECG COMPARED TO ECG 09/21/2022 20:31:29 ATRIAL FIBRILLATION NOW PRESENT Electronically Signed On 09-22-2022 15:45:25 CDT by Phillip Ozuna D.O.
--- NOTE | 2022-09-22 14:38 | PM.IMPN ---
Progress Note: A&P Assessment and Plan (1) Septic shock: Code(s): A41.9 - Sepsis, unspecified organism; R65.21 - Severe sepsis with septic shock Status: Acute Assessment and Plan: Patient presented the outside hospital with fevers/chills, productive cough, lethargy -rapid strep throat test was positive -chest CT scan did not show any pulmonary embolism, revealed atelectasis and infiltrates -lactic acid is normal -off Levophed since 09/20/2022 -has been off Miguel-Synephrine since 09/18/2022 -09/18/2022: Blood cultures growing Enterococcus faecalis 07/30 -09/18/2022: MRSA screen is positive -patient started on Unasyn on 09/21 Zosyn and vancomycin which were discontinued on 09/21 -azithromycin added on 09/18 for 5 days (2) Community acquired pneumonia: Code(s): J18.9 - Pneumonia, unspecified organism Status: Acute Assessment and Plan: Community acquired pneumonia likely strep with strep bacteremia -continue antibiotics as above -influenza A and B were negative at the outside hospital -rapid antigen for COVID was negative at the outside hospital -SARS-CoV-2 PCR negative here at [facility] -rapid strep throat test was positive (3) COPD with emphysema: Code(s): J43.9 - Emphysema, unspecified Status: Acute Assessment and Plan: Patient with history of COPD, tobacco abuse -continue bronchodilators, antibiotics and supplemental oxygen -BiPAP at night and tolerating Add budesonide nebs (4) Atrial fibrillation: Code(s): I48.91 - Unspecified atrial fibrillation Status: Acute Assessment and Plan: Patient with history of AFib, currently rate controlled -has a pacemaker -continue rivaroxaban -will hold beta-helen and diltiazem since patient is in septic shock requiring vasopressors (5) Chronic kidney disease: Code(s): N18.9 - Chronic kidney disease, unspecified Status: Acute Assessment and Plan: History of chronic kidney disease -creatinine currently 1.0 -will monitor urine output, renal function and electrolytes (6) Elevated LFTs: Code(s): R79.89 - Other specified abnormal findings of blood chemistry Status: Acute Assessment and Plan: Elevated LFTs could be related to hypotension, septic shock -LFTs have normalized -hepatitis panel was negative -right upper quadrant ultrasound showed gallbladder sludge - (7) Chest pain: Code(s): R07.9 - Chest pain, unspecified Status: Acute Assessment and Plan: Patient had chest pain after being given IV fluids -troponin was mildly elevated and plateaued which could be related to type 2 infarct secondary septic shock -EKG showed right bundle-branch block, paced rhythm and left axis deviation Chest pain evident again. Recheck EKG and chest x-ray Plan DVT prophylaxis: Rivaroxaban Stress ulcer prophylaxis: Not indicated as patient is on a diet Nutrition: Heart healthy diet Code Status: Full code Subjective Date/time seen: 09/22/22 14:38 Interval history: Patient presented with septic shock pneumonia productive cough rapid strep test was positive hypotensive requiring vasopressor. He still gets short of breath with exertion. Chest x-ray with pulmonary edema getting intermittent diuresis. Review of Systems Review of Systems: All systems reviewed & are unremarkable except as noted in HPI and below Exam Narrative: General: Pleasant patient Alert and oriented x3 in mild distress HEENT:? Pupils equal and reactive, sclera is clear Neck:? Supple Respiratory:? Coarse breath sounds bilaterally, decreased at bases, end-expiratory wheeze Cardiac:? Paced rhythm, rate controlled tachycardic Abdomen:? Soft, nontender, nondistended, normoactive bowel sounds, obese Extremities:? Trace edema, palpable pedal pulses Neuro:? Patient is awake, alert, oriented x3, nonfocal Psych:? Normal mentation and affect Objective Data Vital Signs Vital Si
[2022-09-22 14:52] LABS: Alveolar/Arterial O2 Gradient 110.9 mmHg; Base Excess ABG 1.9 mEq/l (+/-2.0); Fractional Inspired Oxygen 40 %; HCO3 ABG 27.3 mEq/l (22.0-26.0); Oxygen Content ABG 18.8 %vol (16.0-22.0); Oxygen Saturation ABG 98.3 % (95.0-100.0); Oxyhemoglobin 97.3 % THb (90.0-100.0); PCO2 ABG 45.9 mmHg (35.0-45.0); PO2 ABG 121.5 mmHg (80.0-100.0); PO2 FiO2 Ratio Arterial Blood 3.04 %; Total Hemoglobin 13.6 g/dL (12.0-18.0); pH ABG 7.393 (7.350-7.450)
[2022-09-22 14:53] LABS: Modified Allen's Test Pass; Site Drawn LEFT RADIAL
[2022-09-22 14:54] LABS: Device NON-INVASIVE VENT; Non-Invasive Expiratory Pressure 6 CMH2O; Non-Invasive Inspiratory Pressure 12 CMH2O; Non-Invasive Vent Rate 18 /MIN
[2022-09-22 15:16] LABS: Troponin I 0.202 ng/mL (0.000-0.034)
[2022-09-22] MEDS: LORazepam INJ (*CRX) 2 MG/ML VIAL 0.5 MG IV PUSH (16:22)
[2022-09-22] MEDS: METOPROLOL TARTRATE 12.5 MG TABLET PO (16:23)
[2022-09-22] MEDS: AMIODARONE 150 MG/D5W 100 ML 150 MG/100 ML BAG 600 MG IV CONT (17:12)
[2022-09-22] MEDS: AMIODARONE 360 MG/D5W 200 ML 360 MG/200 ML BAG 33.33 MG (17:13)
[2022-09-22 18:19] LABS: Glucose Point of Care 200 mg/dl (65-105)
--- NOTE | 2022-09-22 19:15 | PC.NURSE ---
Was at patient bedside when patient became unresponsive to sternal rub, jaw clamped down, severe cyanosis noted. Pulse checked and none palpated. Chest compressions were started at 1843 and code murray was called. See code documentation
--- NOTE | 2022-09-22 19:21 | WPDPROCEDUR ---
Procedures Intubation Intubation Date: 09/22/22 Intubation Time: 18:55 Consent: Implied consent. Performed emergently. A pre-procedural Time-Out was completed immediately before starting the procedure and confirmed: Patient Identification, Site, Procedure, Patient Position and the Availability of Requisite Equipment: Yes Sedative: etomidate Mg given: 20 Paralytic: succinylcholine Mg given: 100 Laryngoscope: fiber optic video scope Assist device used: fiber optic device ET tube size: 6.5 Tube secured depth (cm): 22 Tube secured location: teeth Tube placement confirmation: visualized tube passing through cords, equal breath sounds bilaterally, no breath sounds over epigastrium and confirmation by capnometry Intubation complications: difficult intubation Additional comments: Responded to [facility] called at 1842. Advanced airway needed as his SpO2 remained in the 50s to 70s despite adequate bagging with Ambu bagging her respiratory therapy. [place] scope was used to visualize the cords. There was significant tracheal edema and the 7.5 ET tube was unable to be passed through this swelling. [place] scope was removed and the patient was once again bagged for a brief period of time. A bougie was then passed easily through the small opening and a 6.5 ET tube was placed over that with mild resistance but no significant difficulty. Bright red blood with deep suctioned from the patient's lungs and he was much easier to bag thereafter. He was in PEA arrest on my [place] [facility]. At one point it appeared he may be in Vfib vs wide complex and he was defibrillated without success. ROSC was never acheived.
--- NOTE | 2022-09-22 19:23 | P.CODEBLUE_ITS ---
Code Blue Note Code Blue Note Time Arrived at Code Blue: 1909 Code Blue Summary: Called to ICU by Arlet Johnson who was presiding over jr gao. summary based off ICU nurse sign out. supposedly patient became diaphoretic with cold. clammy and mottled extremities. presented with rapid afib for which cardiology was consulted and recommended amiodarone drip as well as metoprolol iv push. patient then went into cardiac arrest and jr gao called. difficult intubation due to patient habitus. by the time i entered room patient was already pronounced at 1907. nursing fence erector supervisor called up Kishore as well as rene Olsen and informed of ongoing resuscitation efforts. Rene Olsen called up ICU again and i informed him of patient's demise and offered condolences. called up Kishore but only got her voicemail. [id number] Developer and in processing instructor informed of situation.
--- NOTE | 2022-09-22 19:30 | PC.NURSE ---
Notified Dr. Cam and Dr. Mosqueda of patient expiration
--- NOTE | 2022-09-22 19:45 | PM.EVENT ---
Event Note Event Note Event Note: I was called at 5:57 pm with this consult. Pt in a fib RVR and distress. Discussed w/ RN; BP good, ordered a bolus of amiodarone. I consulted EMR; pt very sick w/ bacteremia, CHF, a fib, CP, SOB, restlessness, etc. Personally reviewed the EKG (no acute ischemic EKG changes) and CXRs (CHF better than earlier). Echo on admission showed severe aortic stenosis. I consulted [facility]. Not much info but an Echo 2019 showed mild . I entered orders and spoke to the RN at 6:17 pm regarding my summarization of his status. Particularly, pts w/ severe aortic stenosis may not tolerate a fib RVR. Rec she give a dose of IV metoprolol and the previously ordered amio bolus. Call if not better in an hour. Pt was upgraded to ICU status. Unfortunately, I rec'd a call at 7:45 pm fr RN that the pt had arrested and could not be revived.
== END 2022-09-22 19:04 | disposition expired | DRG 871 ==
PROVIDERS: Internal Medicine; Admitting Provider Internal Medicine; PCP Family Medicine; Visit Provider Internal Medicine
DX: A41.9 Sepsis, unspecified organism (principal); I21.A1 Myocardial infarction type 2; R65.21 Severe sepsis with septic shock; J18.9 Pneumonia, unspecified organism; J43.9 Emphysema, unspecified; I48.91 Unspecified atrial fibrillation; Z95.0 Presence of cardiac pacemaker; F17.210 Nicotine dependence, cigarettes, uncomplicated; N18.9 Chronic kidney disease, unspecified; Z20.822 Contact with and (suspected) exposure to COVID-19
CPT/HCPCS: 31500; 36415; 36600; 71045; 76705; 80053; 80074; 80202; 81001; 82805; 82948; 83605; 83690; 83735; 83880; 84100; 84439; 84443; 84480; 84484; 85025; 85055; 85610; 85730; 87040; 87081; 87086; 87147; 87181; 87186; 93005; 94002; 94003; 94640; 94660; 97161; 97165; A9270; C1752; C8929; C9113; J0153; J0171; J0282; J0295; J0330; J0456; J1720; J1815; J2060; J2270; J2370; J2543; J3370; J3475; J7030; J7060; P9047; Q9957; U0003; U0005